=== PATIENT | female | born 1980 | race Caucasian/White ===

== ENCOUNTER 2018-08-20 09:11 | Emergency (ER) | payer MEDICAID ==
[~2018-08-20] VITALS: Ht 157.5 cm; Wt 71.2 kg
[2018-08-20 09:33] VITALS: Ht 157.5 cm; Wt 71.2 kg
[2018-08-20 11:03] VITALS: BP 113/74
== END 2018-08-20 11:03 | disposition home or self-care (01) ==
LOC: ED 09:11
DX: K13.0 Diseases of lips (principal); L08.9 Local infection of the skin and subcutaneous tissue, unspecified; Z88.6 Allergy status to analgesic agent